=== PATIENT | female | born 2000 | race Caucasian/White ===

== ENCOUNTER 2023-11-18 16:26 | Emergency (ER) | payer BC, OTHER ==
[~2023-11-18] VITALS: Ht 154.9 cm; Wt 99.8 kg
[2023-11-18] MEDS ORDERED: METRONIDAZOLE 500 MG TAB PO STA (21:11)
[2023-11-18] MEDS ORDERED: CEFTRIAXONE 500 MG VIAL IM STA (21:11)
[2023-11-18] MEDS ORDERED: AZITHROMYCIN 250 MG TAB PO STA (21:11)
[2023-11-18] MEDS ORDERED: ONDANSETRON HCL 4 MG ORAL DISINTEGRATING TAB PO STA (21:12)
[2023-11-18] MEDS ORDERED: LIDOCAINE HCL 1% LOCAL INJ 20 ML VIAL ONE (21:50)
[2023-11-18] MEDS ORDERED: TIVICAY50 MG PO (22:02)
[2023-11-18] MEDS ORDERED: ONDANSETRON ODT4 MG PO (22:02)
[2023-11-18] MEDS ORDERED: TRUVADA 200 MG1 EACH PO (22:02)
[2023-11-18 23:21] VITALS: BP 141/89; O2SAT 100
== END 2023-11-18 22:27 | disposition home or self-care (01) ==
LOC: ER 18:02
DX: T76.21XA Adult sexual abuse, suspected, initial encounter (principal); R10.30 Lower abdominal pain, unspecified; S50.12XA Contusion of left forearm, initial encounter; S60.222A Contusion of left hand, initial encounter
CPT/HCPCS: 99282; J0696; J2001; Q0162